=== PATIENT | female | born 1980 | race Two or more races ===

== ENCOUNTER 2016-08-19 16:43 | Emergency (ER) | payer MEDICAID ==
[~2016-08-19] VITALS: Ht 157.5 cm; Wt 72.6 kg
[2016-08-19] MEDS ORDERED: AMOX500C2 PO (17:02)
[2016-08-19] MEDS ORDERED: IBUP-1955 PO (17:02)
[2016-08-19] MEDS ORDERED: HYDR-3972 PO (17:02)
[2016-08-19] MEDS ORDERED: PROCHLORPERAZINE EDISYLATE 10 MG/2 ML VIAL IV ONE (17:45)
[2016-08-19] MEDS ORDERED: HYDROCODONE/APAP 5-325MG TABLET PO ONE (17:45)
[2016-08-19] MEDS ORDERED: IV NORMAL SALINE 1000 ML BAG IV ONE (17:45)
[2016-08-19] MEDS ORDERED: HYDROCODONE/APAP 5-325MG TABLET ONE (18:08)
[2016-08-19] MEDS ORDERED: PROCHLORPERAZINE EDISYLATE 10 MG/2 ML VIAL ONE (18:09)
[2016-08-19 18:10] LABS: BASOPHILS % (AUTO) 0.8 % (0.0-2.0); EOSINOPHILS # (AUTO) 0.1 K/uL (0.0-0.7); EOSINOPHILS % (AUTO) 1.3 % (0.0-7.0); HEMATOCRIT 41.9 % (37-47); LYMPHOCYTES # (AUTO) 2.5 K/UL (0.8-4.8); LYMPHOCYTES % (AUTO) 42.3 % (20.5-51.5); MEAN CORPUSCULAR HGB CONC 33 g/dL (32.0-37.0); MEAN CORPUSCULAR VOLUME 83.9 FL (81.0-99.0); MONOCYTES # (AUTO) 0.4 K/UL (0.1-1.30); MONOCYTES % (AUTO) 7.6 % (0.0-11.0); NEUTROPHILS # (AUTO) 2.9 K/UL (1.8-8.9); PLATELET COUNT (AUTO) 397 K/UL (150-450); RED BLOOD CELL COUNT(AUTO) 4.99 MIL/UL (4.2-5.4); WHITE BLOOD COUNT (AUTO) 5.9 K/UL (4.0-11.2)
[2016-08-19 18:17] LABS: CREATININE 0.6 mg/dL (0.6-1.3); POTASSIUM 4.3 mmol/L (3.5-5.1)
--- NOTE | 2016-08-19 18:22 | NUR ---
PATIENT WAS SEEN BY MD FOR C/O HEAD PAIN. IV STARTED, MEDS GIVEN ORDERED. PATIENT STATES SHE FEELS MUCH BETTER, LESS PAIN. DR MCKENZIE IS AT BEDSIDE SPEAKING TO PATIENT NOW.
--- NOTE | 2016-08-19 18:45 | NUR ---
IV DC'D, CATHETER TIP INTACT, PRESSURE APPLIED, DRESSING APPLIED. DC AND FOLLOW UP ISNTRUCTIONS GIVEN AND EXPLAINED TO PATIENT WHO STATES SHE UNDERSTANDS ALL ISNTRUCTIONS.
[2016-08-19 18:46] VITALS: BP 122/75
== END 2016-08-19 18:46 | disposition home or self-care (01) ==
LOC: ER 16:46
DX: R51 Headache (principal); R11.10 Vomiting, unspecified
CPT/HCPCS: 36415; 80048; 85025; 85730; 96361; 96374; 99284; A4663; J0780; J7030

== ENCOUNTER 2020-11-16 12:32 | Emergency (ER) | payer MEDICAID ==
[~2020-11-16] VITALS: Ht 157.5 cm; Wt 72.6 kg
[~2020-11-16 12:32] MED LIST: AMOX500C2 PO; HYDR-3972 PO; IBUP-1955 PO
--- NOTE | 2020-11-16 12:50 | NUR ---
MD at bedside for assessment for assessment, technical translator used at this time
[2020-11-16] MEDS ORDERED: KETOROLAC TROMETHAMINE 15 MG INJ IVP ONE (13:00)
[2020-11-16] MEDS ORDERED: PROCHLORPERAZINE EDISYLATE 10 MG/2 ML VIAL IV ONE (13:00)
[2020-11-16 13:02] LABS: HEMATOCRIT 39.5 % (31.2-41.9); MEAN CORPUSCULAR HEMOGLOBIN 28.3 uug (24.7-32.8); MEAN CORPUSCULAR VOLUME 84.1 fL (75.5-95.3); PLATELET COUNT (AUTO) 417 K/uL (179-408)
[2020-11-16 13:08] LABS: CARBON DIOXIDE 24 mmol/L (21-32); CHLORIDE 100 mmol/L (98-107); CREATININE 0.4 mg/dL (0.6-1.3); GLUCOSE 148 mg/dL (74-106); POTASSIUM 3.6 mmol/L (3.5-5.1); UREA NITROGEN, BLOOD 7 mg/dL (7-18)
[2020-11-16] MEDS ORDERED: PROCHLORPERAZINE EDISYLATE 10 MG/2 ML VIAL ONE (13:13)
[2020-11-16] MEDS ORDERED: KETOROLAC TROMETHAMINE 30 MG INJ ONE (13:22)
[2020-11-16] MEDS ORDERED: ONDA4TAB11 PO (14:25)
[2020-11-16] MEDS ORDERED: NAPR-1009 PO (14:25)
--- NOTE | 2020-11-16 14:38 | NUR ---
IV removed at this time, Patient discharged to home in stable condition. Written and verbal after care instructions given. Patient verbalizes understanding of instructions. Stressed follow up or return to ER for worsening s/s.
[2020-11-16 14:41] VITALS: BP 142/80
== END 2020-11-16 14:42 | disposition home or self-care (01) ==
LOC: ER 12:34
DX: R51.9 Headache, unspecified (principal); R94.31 Abnormal electrocardiogram [ECG] [EKG]; E11.9 Type 2 diabetes mellitus without complications; I10 Essential (primary) hypertension
CPT/HCPCS: 36415; 80048; 84484; 84702; 85025; 93005; 96374; 96375; 99284; J0780; J1885; 70030-TC; A4663

== ENCOUNTER 2022-04-19 23:43 | Emergency (ER) | payer MEDICAID ==
[~2022-04-19] VITALS: Ht 157.5 cm; Wt 72.6 kg
[~2022-04-19 23:43] MED LIST changes: +NAPR-1009 PO; +ONDA4TAB11 PO
--- NOTE | 2022-04-19 23:53 | NUR ---
patient walked to ER with steady gait, NAD noted.
--- NOTE | 2022-04-19 23:56 | NUR ---
DR Gao at [facility] [facility] [place]
[2022-04-20] MEDS ORDERED: HYDROMORPHONE 1 MG/1 ML DISP.SYRIN ONE (00:13)
[2022-04-20] MEDS ORDERED: ONDANSETRON 4 MG/2 ML VIAL ONE ×2 (00:13→01:35)
[2022-04-20] MEDS ORDERED: HYDROMORPHONE 1 MG/1 ML DISP.SYRIN IV ONE (00:15)
[2022-04-20] MEDS ORDERED: ONDANSETRON 4 MG/2 ML VIAL IV ONE ×2 (00:15→01:45)
[2022-04-20 00:17] LABS: HEMATOCRIT 36.4 % (31.2-41.9); MEAN CORPUSCULAR VOLUME 81.4 fL (75.5-95.3); PLATELET COUNT (AUTO) 397 K/uL (179-408)
[2022-04-20 00:38] LABS: *URINE HCG, QUAL NEGATIVE (NEGATIVE)
[2022-04-20 00:47] LABS: CARBON DIOXIDE 26 mmol/L (21-32); CHLORIDE 102 mmol/L (98-107); CREATININE 0.4 mg/dL (0.6-1.3); GLUCOSE 182 mg/dL (74-106); POTASSIUM 3.7 mmol/L (3.5-5.1); UREA NITROGEN, BLOOD 9 mg/dL (7-18)
[2022-04-20 00:59] LABS: ALANINE AMINOTRANSFERASE 45 U/L (14-59); ALKALINE PHOSPHATASE 78 U/L (50-136); ASPARTATE AMINOTRANSFERASE 21 U/L (15-37); BILIRUBIN,DIRECT 0.1 mg/dL (0.0-0.2); BILIRUBIN,TOTAL 0.3 mg/dL (0.2-1.0); LIPASE 102 U/L (73-393); TOTAL PROTEIN, SERUM 7.2 g/dL (6.4-8.2)
--- NOTE | 2022-04-20 01:00 | NUR ---
US TECH AT BEDSIDE
[2022-04-20] MEDS ORDERED: IV NORMAL SALINE 250 ML IV ONE (01:01)
[2022-04-20] MEDS ORDERED: IOHEXOL 300MG/ML 100 ML INFUS..BTL ONE (01:01)
[2022-04-20] MEDS ORDERED: SWABABLE VALVE TRANSFER SET EA MC ONE (01:01)
[2022-04-20] MEDS ORDERED: OXYCODONE/APAP 5-325 MG TABLET ONE (04:38)
--- NOTE | 2022-04-20 04:42 | NUR ---
Patient discharged to home in stable condition. Written and verbal after care instructions given. Patient verbalizes understanding of instructions. Stressed follow up or return to ER for worsening s/s. Patient is a/ox4, NAD noted. Patient ambulated with steady gait. Accompanied by her
[2022-04-20 04:43] VITALS: BP 145/73
[2022-04-20] MEDS ORDERED: OXYCODONE/APAP 5-325 MG TABLET PO ONE (04:45)
== END 2022-04-20 04:43 | disposition home or self-care (01) ==
LOC: ER 23:44
DX: R10.84 Generalized abdominal pain (principal); E11.9 Type 2 diabetes mellitus without complications; R03.0 Elevated blood-pressure reading, without diagnosis of hypertension
CPT/HCPCS: 84703; 99285; 74177; 96374; 76705; 96375; 80076; 80048; 83690; 85025; 36415; 96376; J2405 ×2; Q9967; J1170